=== PATIENT | male | born 1970 | race African-American/Black ===

== ENCOUNTER 2024-03-01 11:43 | Emergency (ER) | payer OTHER ==
--- OUTSIDE RECORDS SUMMARY | 2024-03-01 11:48 | XMS REPORT | Continuity of Care Document ---
Author Name Unknown Address [address] [place] [place] [address] [facility] thconnect Address [address] [place] [place] [address] Care Team Providers Care Registered Nurse First Assistant Name Role Phone VICK SAMANO Primary Care Physician Unavailab LIZZIE Stewart Attending Clinician Unav ailable KEYSHAWN AMAYA Attending Clinician Unava ilSITA Monroy Attending Clinician UnavailVICK Eason Attending Clinician Unavailable , [facility] Attending Clinician Unavailable Vick Samano NP Attending Clinician [phone] NIKKO PEDERSON Attending Clinician Unavailable NIKKO PEDERSON Attending Clinician Unavailable Nikko Pederson MD Attending Clinician [phone] Carlo Evans MD Attending Clinician + Doctor Unassigned, [place] Attending Clinician U navailable VIDYA ARMIJO Attending Clinician Unavailable LAURENT PRETTY Attending Clinician Unavaila RIGOBERTO Cary Attending Clinician Unavailable Yue Bee Attending Clinician [phone] Doctor Unassigned, [place] Attending Clinician U navailCARLO Nevraez Attending Clinician Unavailable YUE GARCÍA Attending Clinician Unavailable JORGE GALLARDO Attending Clinician Unavailable SHAUN WILLOUGHBY Attending Clinician Unavaila ble 2, [facility] Attending Clinician Unavailable JOS BLACKMAN Attending Clinician Latosha vailaBRUCE Pearce Attending Clinician Unavailable Bruce Koehler DO Attending Clinician [phone] Lorrie Martinez RN Attending Clinician Unavailable IVETH FONTAINE Attending Clinician Unavailable Iveth Fontaine MD Attending Clinician [phone] YUVAL SNYDER Attending Clinician Unavailable JACKSON PEREZ Attending Clinician Unavail able Yue Baires Attending Clinician [phone] Leni Banks MD Attending Clinician [phone] Jin Martinez MD Attending Clinician [phone] JIN MARTINEZ Attending Clinician Unavail able JIN MARTINEZ Attending Clinician Unavail able GE NICHOLSON Attending Clinician Unavailable Ge Nicholson MD Attending Clinician [phone] NIKKO PEDERSON Admitting Clinician Unavailable BRUCE KOEHLER Admitting Clinician Unavailable IVETH FONTAINE Admitting Clinician Unavailable Iveth Fontaine MD Admitting Clinician [phone] YUVAL SNYDER Admitting Clinician Unavailable Payers Payer Name Policy Type Policy Number Effective Date Expirati on Date Source [facility] [id number] 2022 00:00[facility]00 [facility] [id number] 2022 00:00:00 Problems Condition Name Condition Details Condition Category Status Onset Date Resolution Date Last Treatment Date Treating Clinician Comments Source Gastroesop hageal reflux disease without esophagiti s Gastroesop hageal reflux disease without esophagiti s Disease Active 2023-02 00:00: 00 [facility] Hypertrigl yceridemia Hypertrigl yceridemia Disease Active 2023-02 00:00: 00 [facility] Essential hypertensi on Essential hypertensi on Disease Active 2023-02 00:00: 00 [facility] History of stroke History of stroke Disease Active 2023-02 00:00: 00 [facility] Type 2 diabetes mellitus with other specified complicati on, with long-term current use of insulin Type 2 diabetes mellitus with other specified complicati on, with long-term current use of insulin Disease Active 2023-02 00:00: 00 [facility] Muscle twitching Muscle twitching Disease Active 2022-02 00:00: 00 [facility] Obesity (BMI 30-39.9) Obesity (BMI 30-39.9) Disease Active 2022-02 00:00: 00 [facility] ESRD (end stage renal disease) ESRD (end stage renal disease) Disease Active 06-16 00:00: 00 Overview: Formattin g of this note might be different from the original. Added automatic ally from request for surgery [id number] [facility] Allergies, Adverse Reactions, Alerts Allergy Name Allergy Type Status Severity Reaction(s) Onset Date Inactive Date Treating Clinician Comments Source NO KNOWN ALLERGIE S Drug Class Active [facility] Social History Social Habit Start Date Stop Date Quantity Comments Source [facility] Sexual [facility] History of tobacco use Passive smoker [facility] Cigarettes smoked current (pack per day) - Reported 2024-02-19 00:00:00 2024-02-19 00:00:00 [facility] Cigarette pack-years 2024-02-19 00:00:00 2024-02-19 00:00:00 [facility] Tobacco use and exposure 2024-02-19 00:00:00 2024-02-19 00:00:00 Smokeless tobacco non-user [facility] Alcoholic beverage intake 2024-02-19 00:00:00 2024-02-19 00:00:00 Lifetime non-drinker (finding) [facility] History of Social function 2024-02-18 00:00:00 2024-02-18 00:00:00 [facility] Tobacco Comment 2024-02-18 00:00:00 2024-02-18 00:00:00 Uses filtered cigars, half a pack a day smoked 22 years-10 cigarettes per day [facility] Alcohol intake 2023-05-03 00:00:00 2023-05-03 00:00:00 Lifetime non-drinker (finding) [facility] Exposure to SARS-CoV-2 (event) 2022-07-01 00:00:00 2022-07-11 15:40:00 Not sure [facility] Sex assigned at 1970 00:00:00 1970 00:00:00 [facility] Smoking Status Start Date Stop Date Source Tobacco smoking consumption unknown [facility] Smokes tobacco daily 2024-02-19 00:00:00 [facility] Medications Ordered Medication Name Filled Medication Name Start Date Stop Date Current Medication? Ordering Clinician Indication Dosage Frequency Signature (SIG) Comments Components Source pantoprazol e 40 mg EC tablet 2023-02 00:00: 00 Yes [id number] 40mg Take 1 tablet by mouth in the morning. [facility] tc 99m-sulfur colloid oral solution 1 millicurie 2023-02 15:00: 00 01-17 15:00 :00 No [id number] 1mCi 1 millicurie , Oral, ONCE, 1 dose, On Sun01/18/24 at 0900, Routine [facility] carvediloL (COREG) 12.5 mg tablet 08-02 11:36: 45 08-02 00:00 :00 No 12.5mg Take 1 tablet by mouth in the morning and 1 tablet in the evening. Take with meals. [facility] Insulin Glargine (LANTUS SOLOSTAR U-100 INSULIN) 100 unit/mL (3 mL) injection 08-02 11:14: 24 Yes 20U inject 20 Units under the skin at bedtime. [facility] furosemide (LASIX) 40 mg tablet 08-02 10:57: 23 Yes 40mg Take 1 tablet by mouth in the morning. [facility] losartan 50 mg tablet 08-02 10:57: 23 Yes 50mg Take 1 tablet by mouth in the morning and 1 tablet in the evening. [facility] insulin regular human 100 unit/mL injection 08-02 10:57: 23 Yes 4U inject 4 Units under the skin in the morning and 4 Units at noon and 4 Units in the evening. inject before meals. Sliding scale [facility] NIFEdipine ER 60 mg tablet 08-02 10:57: 23 Yes 60mg Take 1 tablet by mouth in the morning and 1 tablet in the evening. [facility] carvediloL (COREG) 25 mg tablet 08-02 00:00: 00 Yes [id number] 25mg Take 1 tablet by mouth in the morning and 1 tablet in the evening. Take with meals. [facility] atorvastati n (LIPITOR) 10 mg tablet 05-03 00:00: 00 Yes [id number] 10mg Take 1 tablet by mouth at bedtime. [facility] calcium acetate,ruben sphat bind, 667 mg capsule 05-02 15:20: 07 Yes 667mg Take 1 capsule by mouth in the morning and 1 capsule at noon and 1 capsule in the evening. Take with meals. [facility] Insulin Glargine (LANTUS SOLOSTAR U-100 INSULIN) 100 unit/mL (3 mL) injection 05-02 15:20: 07 Yes 15U inject 15 Units under the skin at bedtime. [facility] insulin regular human 100 unit/mL injection 05-02 15:20: 06 Yes 4U inject 4 Units under the skin in the morning and 4 Units at noon and 4 Units in the evening. inject before meals. Sliding scale [facility] losartan 50 mg tablet 05-02 15:18: 45 Yes 50mg Take 1 tablet by mouth in the morning and 1 tablet in the evening. [facility] carvediloL (COREG) 12.5 mg tablet 05-02 15:18: 09 Yes 12.5mg Take 1 tablet by mouth in the morning and 1 tablet in the evening. Take with meals. [facility] furosemide (LASIX) 40 mg tablet 05-02 15:18: 09 Yes 40mg Take 1 tablet by mouth in the morning. [facility] calcium carbonate (CALCIUM 500 ORAL) 05-02 15:17: 42 05-02 00:00 :00 No Take by mouth. [facility] NIFEdipine ER 60 mg tablet 05-02 15:17: 40 Yes 60mg Take 1 tablet by mouth in the morning and 1 tablet in the evening. [facility] D10W 10 % IV infusion 03-06 15:00: 00 Yes at 100 mL/hr, IV Infusion, CONTINUOUS , Starting on Sun03/06/23 at 0900, Until Discontinu ed, Routine [facility] losartan (COZAAR) tablet 50 mg 2022-02 15:00: 00 Yes 50mg 50 mg, Oral, BID, First dose on 01/27/23 at 0900, Until Discontinu ed, Routine [facility] atenoloL (TENORMIN) tablet 25 mg 2022-02 14:15: 00 Yes 25mg 25 mg, Oral, QHS, First dose on 01/27/23 at 0815, Until Discontinu ed, Routine [facility] apixaban 2.5 mg tablet 2022-02 13:25: 23 Yes 2.5mg Take 1 tablet by mouth in the morning and 1 tablet in the evening. [facility] calcium carbonate (CALCIUM 500 ORAL) 2022-02 13:25: 23 Yes Take by mouth. [facility] KCL (KLOR-CON M10) tablet 30 mEq 2022-02 12:45: 00 01-27 13:51 :00 No 30meq 30 mEq, Oral, ONCE, 1 dose, On 01/27/23 at 0645, Routine [facility] labetalol HCl (LABETALOL ORAL) 2022-02 12:12: 01-27 00:00 :00 No 60mg Take 60 mg by mouth in the morning. [facility] insulin lispro 100 unit/mL pen injector 2022-02 12:12: 01-27 00:00 :00 No inject under the skin 3 (three) times daily before meals. Sliding scale. Highest dose 10 units [facility] atenoloL 25 mg tablet 2022-02 00:00: 00 02-27 05:59 :00 No [id number] 25mg Take 1 tablet by mouth at bedtime for 30 days. [facility] losartan 50 mg tablet 2022-02 00:00: 00 02-27 05:59 :00 No [id number] 50mg Take 1 tablet by mouth in the morning and 1 tablet in the evening. Do all this for 30 days. [facility] insulin lispro 100 unit/mL pen injector 2022-02 00:00: 00 02-27 05:59 :00 No [id number] 10U inject 10 Units under the skin in the morning and 10 Units at noon and 10 Units in the evening. inject before meals. Do all this for 30 days. If you eat 1/2 meal, cut the dose to 5 units with the meal [facility] pantoprazol e (PROTONIX) EC tablet 40 mg 2022-02 15:00: 00 Yes 40mg 40 mg, Oral, DAILY, First dose on Sun01/26/23 at 0900, Until Discontinu ed, Routine [facility] insulin lispro (human) (HumaLOG U-100) injection 10 Units 2022-02 05:30: 00 01-26 04:52 :00 No 10U 10 Units, Subcutaneo us, ONCE, 1 dose, On Sun01/25/23 at 2330, Routine [facility] insulin glargine (LANTUS U-100) injection 5 Units 2022-02 05:30: 00 01-26 04:50 :00 No 5U 5 Units, Subcutaneo us, ONCE, 1 dose, On Sun01/25/23 at 2330, Routine [facility] Sliding Scale Insulin - Lispro (HumaLOG) 2022-02 03:00: 00 Yes Subcutaneo us, TID MEALS+HS, First dose on Sun01/25/23 at 2100, Until Discontinu ed, Routine [facility] apixaban (ELIQUIS) tablet 2.5 mg 2022-02 02:00: 00 Yes 2.5mg 2.5 mg, Oral, BID, First dose on Sun01/25/23 at 2000, Until Discontinu ed, Routine
Indicatio ns: Non-Valvul ar Atrial Fibrillati on [facility] NIFEdipine ER tablet 60 mg 2022-02 02:00: 00 Yes 60mg 60 mg, Oral, BID, First dose on Sun01/25/23 at 2000, Until Discontinu ed, Routine [facility] labetaloL (NORMODYNE) tablet 50 mg 2022-02 02:00: 00 01-27 14:06 :03 No 50mg 50 mg, Oral, Q12H, First dose on Sun01/25/23 at 2000, Until Discontinu ed [facility] insulin glargine (LANTUS U-100) injection 20 Units 2022-02 01:00: 00 Yes 20U 20 Units, Subcutaneo us, DAILY, First dose on Sun01/25/23 at 1900, Until Discontinu ed, Routine [facility] glucagon (GLUCAGEN DIAGNOSTIC KIT) injection 1 mg 2022-02 00:47: 13 Yes 1mg 1 mg, Intramuscu lar, PRN, Starting on Sun01/25/23 at 1847, Until Discontinu ed, JOB, Blood Glucose < or = 70 mg/dL and patient is NPO, unable to swallow or has mental changes. [facility] dextrose 50 % in water (D50W) injection 25 mL 2022-02 00:47: 13 Yes 25mL 25 mL, Slow IV Push, PRN, Starting on Sun01/25/23 at 1847, Until Discontinu ed, JOB, Blood Glucose < or = 70 mg/dL and patient is NPO, unable to swallow or has mental status changes. [facility] insulin regular human (HUMULIN R) injection 5 Units 2022-02 23:30: 00 01-25 22:45 :00 No 5U 5 Units, Subcutaneo us, ONCE, 1 dose, On Sun01/25/23 at 1730, Routine
Indicatio n for insulin: Hyperglyce cheryl [facility] KCL (KLOR-CON M20) tablet 20 mEq 2022-02 23:30: 00 01-25 22:44 :00 No 20meq 20 mEq, Oral, ONCE, 1 dose, On Sun01/25/23 at 1730, Routine [facility] insulin regular human (HUMULIN R) injection 7 Units 2022-02 21:00: 00 01-25 20:15 :00 No 7U 7 Units, Subcutaneo us, ONCE, 1 dose, On Sun01/25/23 at 1500, Routine
Indicatio n for insulin: Hyperglyce cheryl [facility] NaCl 0.9% (NS) bolus infusion 1,000 mL 2022-02 19:45: 00 01-25 21:09 :00 No 1000mL at 999 mL/hr, 1,000 mL, IV Piggyback, ONCE, 1 dose, On Sun01/25/23 at 1345, STAT [facility] insulin regular human (HUMULIN R) injection 10 Units 2022-02 19:30: 00 01-25 19:10 :00 No 10U 10 Units, Subcutaneo us, ONCE, 1 dose, On Sun01/25/23 at 1330, Routine
Indicatio n for insulin: Hyperglyce [facility] insulin lispro 100 unit/mL pen injector 08-31 15:58: 27 Yes inject under the skin 3 (three) times daily before meals. Sliding scale. Highest dose 10 units [facility] olmesartan 40 mg tablet 08-31 15:58: 27 08-31 00:00 :00 No 40mg Take 1 tablet by mouth in the morning. [facility] atenoloL 25 mg tablet 08-31 15:58: 15 08-31 00:00 :00 No 25mg Take 1 tablet by mouth in the morning. [facility] pantoprazol e 40 mg EC tablet 08-31 00:00: 00 02-17 00:00 :00 No [id number] 40mg Take 1 tablet by mouth in the morning. [facility] apixaban 2.5 mg tablet 07-27 16:10: 01 Yes 2.5mg Take 1 tablet by mouth in the morning and 1 tablet in the evening. [facility] labetalol HCl (LABETALOL ORAL) 07-27 16:10: 01 Yes 60mg Take 60 mg by mouth in the morning. [facility] insulin lispro 100 unit/mL pen injector 07-27 16:10: 01 Yes inject under the skin 3 (three) times daily before meals. [facility] atenoloL 25 mg tablet 07-27 16:10: 01 Yes 25mg Take 1 tablet by mouth in the morning. [facility] olmesartan 40 mg tablet 07-27 16:10: 01 Yes 40mg Take 1 tablet by mouth in the morning. [facility] HYDROcodone -acetaminop hen (NORCO) 10-325 mg tablet 1 tablet 07-14 15:09: 40 Yes 1{tbl} 1 tablet, Oral, PRN, 1 dose, Starting on Sun07/14/22 at 1009, Until Discontinu ed, Routine, Pain (scale 7-10), DSU Recovery [facility] HYDROcodone -acetaminop hen (NORCO 5) 5-325 mg tablet 1 tablet 07-14 15:09: 40 Yes 1{tbl} 1 tablet, Oral, PRN, 1 dose, Starting on Sun07/14/22 at 1009, Until Discontinu ed, Routine, Pain (scale 4-6), DSU Recovery [facility] acetaminoph en (TYLENOL) tablet 650 mg 07-14 15:09: 40 Yes 650mg 650 mg, Oral, PRN, 1 dose, Starting on Sun07/14/22 at 1009, Until Discontinu ed, Routine, Pain (scale 1-3), DSU Recovery [facility] NaCl 0.9% (NS) IV infusion 07-14 13:16: 00 07-14 14:48 :24 No CONTINUOUS PRN, Starting on Sun07/14/22 at 0816, Until Sun07/14/22 at 0948, Routine, Intra-op [facility] heparin 25,000 Units/250 mL (Premixed Bag) in 0.45 % NS 07-14 13:15: 00 07-14 14:48 :24 No CONTINUOUS PRN, Starting on Sun07/14/22 at 0815, Until Sun07/14/22 at 0948, Routine, Intra-op [facility] NaCl 0.9% (NS) IV infusion 1,000 mL 07-14 11:45: 00 Yes 1000mL at 42 mL/hr, IV Infusion, CONTINUOUS , Starting on Sun07/14/22 at 0645, Until Discontinu ed, Routine, DSU Pre-op [facility] apixaban 2.5 mg tablet 07-14 10:53: 21 Yes 2.5mg Take 1 tablet by mouth in the morning and 1 tablet in the evening. [facility] labetalol HCl (LABETALOL ORAL) 07-14 10:53: 21 Yes 60mg Take 60 mg by mouth in the morning. [facility] insulin lispro 100 unit/mL pen injector 07-14 10:53: 21 Yes inject under the skin 3 (three) times daily before meals. [facility] atenoloL 25 mg tablet 07-14 10:53: 21 Yes 25mg Take 1 tablet by mouth in the morning. [facility] olmesartan 40 mg tablet 07-14 10:53: 21 Yes 40mg Take 1 tablet by mouth in the morning. [facility] traMADoL 50 mg tablet 07-14 00:00: 00 07-22 04:59 :00 No [id number] 50mg Take 1 tablet by mouth every 6 (six) hours as needed for Pain (scale 4-6) or Pain (scale 7-10) for up to 7 days. Indication s: acute pain [facility] atenoloL 25 mg tablet 07-11 15:55: 12 Yes 25mg Take 1 tablet by mouth in the morning. [facility] atenoloL 25 mg tablet 07-05 14:24: 19 Yes 25mg Take 1 tablet by mouth in the morning. [facility] olmesartan 40 mg tablet 07-05 14:24: 19 Yes 40mg Take 1 tablet by mouth in the morning. [facility] apixaban 2.5 mg tablet 07-05 14:04: 50 Yes 2.5mg Take 1 tablet by mouth in the morning and 1 tablet in the evening. [facility] labetalol HCl (LABETALOL ORAL) 07-05 14:04: 50 Yes 60mg Take 60 mg by mouth in the morning. [facility] insulin lispro 100 unit/mL pen injector 07-05 14:04: 50 Yes inject under the skin 3 (three) times daily before meals. [facility] insulin lispro (HUMALOG KWIKPEN INSULIN) 100 unit/mL pen injector 05-30 14:51: 27 Yes inject under the skin 3 (three) times daily before meals. [facility] apixaban 5 mg tablet 05-30 14:51: 27 Yes 5mg Take 1 tablet by mouth in the morning. [facility] labetalol HCl (LABETALOL ORAL) 05-30 14:51: 27 Yes 60mg Take 60 mg by mouth in the morning. [facility] calcium carbonate (CALCIUM 500 ORAL) 05-30 14:47: 01 Yes Take by mouth. [facility] NIFEdipine ER 60 mg tablet 05-25 00:00: 00 Yes 60mg Take 1 tablet by mouth in the morning. [facility] NIFEdipine ER 90 mg tablet 05-25 00:00: 00 05-02 00:00 :00 No 90mg Take 1 tablet by mouth in the morning and 1 tablet in the evening. [facility] hydralAZINE (APRESOLINE ) injection 20 mg 05-21 18:15: 00 05-21 17:21 :00 No 20mg 20 mg, Slow IV Push, ONCE, 1 dose, On 05/21/22 at 1315, STAT [facility] hydralAZINE (APRESOLINE ) injection 20 mg 05-21 16:30: 00 05-21 15:49 :00 No 20mg 20 mg, Slow IV Push, ONCE, 1 dose, On Sun05/21/22 at 1130, STAT [facility] NaCl 0.9% (NS) bolus infusion 1,000 mL 05-21 16:30: 00 05-21 17:35 :00 No 1000mL at 999 mL/hr, 1,000 mL, IV Piggyback, ONCE, 1 dose, On Sun05/21/22 at 1130, STAT [facility] dextrose 10% (D10W) bolus infusion 250 mL 05-21 16:14: 43 Yes 250mL 250 mL, IV Infusion, PRN - SEE INSTRUCTIO NS, Administer over 60 Minutes, Hypoglycem ia, Starting on Sun05/21/22 at 1114
De xtrose 10% 250 mL bag contains:& nbsp;10 gm = 100 mL 20 gm = 200 mL 25 gm = 250 mL (whole bag) The maximum rate at which dextrose can be infused without producing glycosuria is 0.5 g/kg/hour. &nbs p;BUD: If wrapper is open bag is good for 30 days at room temperatur e. <b r> [facility] dextrose 50 % in water (D50W) injection 50 mL 05-21 15:45: 00 05-21 15:41 :00 No 50mL 50 mL, Intravenou s, ONCE, 1 dose, On Sun05/21/22 at 1045, STAT [facility] hydrALAZINE 50 mg tablet 05-21 00:00: 00 08-31 00:00 :00 No [id number] 50mg Take 1 tablet by mouth in the morning and 1 tablet in the evening. [facility] Immunizations Ordered Immunization Name Filled Immunization Name Date Status Comments Source Influenza Virus Vaccine 00:00:00 Completed Vital Signs Vital Name Observation Time Observation Value Comments S ource Systolic blood pressure 2024-02-18 21:31:00 162 mm[Hg] [facility] Diastolic blood pressure 2024-02-18 21:31:00 90 mm[Hg] [facility] Heart rate 2024-02-18 20:13:00 94 /min [facility] Oxygen saturation in Arterial blood by Pulse oximetry 2024-02-18 20:13:00 98 /min [facility] Body temperature 2024-02-18 20:10:00 36.56 Nisha [facility] Body height 2024-02-18 20:10:00 170.2 cm [facility] Body weight 2024-02-18 20:10:00 95.255 kg [facility] BMI 2024-02-18 20:10:00 32.89 kg/m2 [facility] Systolic blood pressure 2024-02-18 21:30:00 162 mm[Hg] [facility] Diastolic blood pressure 2024-02-18 21:30:00 90 mm[Hg] [facility] Heart rate 2024-02-18 20:12:00 95 /min [facility] Oxygen saturation in Arterial blood by Pulse oximetry 2024-02-18 20:12:00 98 /min [facility] Body temperature 2024-02-18 20:11:00 36.56 Nisha [facility] Body height 2024-02-18 20:11:00 170.2 cm [facility] Body weight 2024-02-18 20:11:00 95.301 kg [facility] BMI 2024-02-18 20:11:00 32.91 kg/m2 [facility] Systolic blood pressure 2023-08-03 15:58:00 209 mm[Hg] [facility] Diastolic blood pressure 2023-08-03 15:58:00 103 mm[Hg] [facility] Heart rate 2023-08-03 15:57:00 91 /min [facility] Body temperature 2023-08-03 15:57:00 36.17 Nisha [facility] Respiratory rate 2023-08-03 15:57:00 8 /min [facility] Body height 2023-08-03 15:57:00 170.2 cm [facility] Body weight 2023-08-03 15:57:00 90.719 kg [facility] BMI 2023-08-03 15:57:00 31.32 kg/m2 [facility] Oxygen saturation in Arterial blood by Pulse oximetry 2023-08-03 15:57:00 98 /min [facility] Systolic blood pressure 2023-05-03 21:42:00 136 mm[Hg] per dialysis nurse [facility] Diastolic blood pressure 2023-05-03 21:42:00 87 mm[Hg] per dialysis nurse [facility] Heart rate 2023-05-03 21:05:00 89 /min [facility] Body temperature 2023-05-03 21:05:00 36.28 Nisha [facility] Respiratory rate 2023-05-03 21:05:00 18 /min [facility] Body height 2023-05-03 21:05:00 175.3 cm [facility] Body weight 2023-05-03 21:05:00 87.68 kg [facility] [facility] BMI 2023-05-03 21:05:00 28.55 kg/m2 [facility] Oxygen saturation in Arterial blood by Pulse oximetry 2023-05-03 21:05:00 98 /min [facility] Systolic blood pressure 2023-03-06 16:26:00 182 mm[Hg] [facility] Diastolic blood pressure 2023-03-06 16:26:00 96 mm[Hg] [facility] Heart rate 2023-03-06 16:26:00 76 /min [facility] Body temperature 2023-03-06 16:26:00 36.5 Nisha [facility] Respiratory rate 2023-03-06 16:26:00 16 /min [facility] Oxygen saturation in Arterial blood by Pulse oximetry 2023-03-06 16:26:00 100 /min [facility] Body height 2023-03-06 13:10:00 180.3 cm [facility] Body weight 2023-03-06 13:10:00 86.183 kg [facility] BMI 2023-03-06 13:10:00 26.50 kg/m2 [facility] Systolic blood pressure 2023-02-01 20:55:00 152 mm[Hg] [facility] Diastolic blood pressure 2023-02-01 20:55:00 84 mm[Hg] [facility] Heart rate 2023-02-01 20:55:00 89 /min [facility] Oxygen saturation in Arterial blood by Pulse oximetry 2023-02-01 20:55:00 98 /min [facility] Body temperature 2023-02-01 20:53:00 36.83 Nisha [facility] Respiratory rate 2023-02-01 20:53:00 15 /min [facility] Body weight 2023-02-01 20:53:00 89.404 kg [facility] BMI 2023-02-01 20:53:00 30.87 kg/m2 [facility] Systolic blood pressure 2023-01-27 17:26:00 176 mm[Hg] [facility] Diastolic blood pressure 2023-01-27 17:26:00 102 mm[Hg] [facility] Heart rate 2023-01-27 17:26:00 82 /min [facility] Body temperature 2023-01-27 17:26:00 36.5 Nisha [facility] Respiratory rate 2023-01-27 17:26:00 18 /min [facility] Body weight 2023-01-27 17:26:00 86.3 kg [facility] BMI 2023-01-27 17:26:00 29.80 kg/m2 [facility] Oxygen saturation in Arterial blood by Pulse oximetry 2023-01-27 10:00:00 93 /min [facility] Body height 2023-01-26 00:36:00 170.2 cm [facility] Systolic blood pressure 2022-08-31 20:55:00 151 mm[Hg] [facility] Diastolic blood pressure 2022-08-31 20:55:00 85 mm[Hg] [facility] Heart rate 2022-08-31 20:55:00 76 /min [facility] Body temperature 2022-08-31 20:54:00 36.67 Nisha [facility] Respiratory rate 2022-08-31 20:54:00 18 /min [facility] Body height 2022-08-31 20:54:00 170.2 cm [facility] Body weight 2022-08-31 20:54:00 89.177 kg [facility] BMI 2022-08-31 20:54:00 30.79 kg/m2 [facility] Respiratory rate 2022-07-14 15:17:00 11 /min [facility] Oxygen saturation in Arterial blood by Pulse oximetry 2022-07-14 15:17:00 100 /min [facility] Systolic blood pressure 2022-07-14 15:12:00 176 mm[Hg] [facility] Diastolic blood pressure 2022-07-14 15:12:00 94 mm[Hg] [facility] Body temperature 2022-07-14 14:53:00 36.83 Nisha [facility] Heart rate 2022-07-14 14:52:00 82 /min [facility] Body height 2022-07-05 19:00:00 170.2 cm [facility] Body weight 2022-07-05 19:00:00 86.183 kg [facility] BMI 2022-07-05 19:00:00 29.76 kg/m2 [facility] Systolic blood pressure 2022-07-14 14:53:00 178 mm[Hg] [facility] Diastolic blood pressure 2022-07-14 14:53:00 94 mm[Hg] [facility] Body temperature 2022-07-14 14:53:00 36.83 Nisha [facility] Respiratory rate 2022-07-14 14:53:00 13 /min [facility] Oxygen saturation in Arterial blood by Pulse oximetry 2022-07-14 14:53:00 100 /min [facility] Heart rate 2022-07-14 14:52:00 82 /min [facility] Body height 2022-07-05 19:00:00 170.2 cm [facility] Body weight 2022-07-05 19:00:00 86.183 kg [facility] BMI 2022-07-05 19:00:00 29.76 kg/m2 [facility] Systolic blood pressure 2022-07-11 20:53:00 178 mm[Hg] [facility] Diastolic blood pressure 2022-07-11 20:53:00 99 mm[Hg] [facility] Heart rate 2022-07-11 20:52:00 93 /min [facility] Respiratory rate 2022-07-11 20:52:00 20 /min [facility] Body height 2022-07-11 20:52:00 170.2 cm [facility] Body weight 2022-07-11 20:52:00 91.491 kg [facility] BMI 2022-07-11 20:52:00 31.59 kg/m2 [facility] Oxygen saturation in Arterial blood by Pulse oximetry 2022-07-11 20:52:00 99 /min [facility] Systolic blood pressure 2022-05-30 19:44:00 142 mm[Hg] [facility] Diastolic blood pressure 2022-05-30 19:44:00 83 mm[Hg] [facility] Heart rate 2022-05-30 19:43:00 78 /min [facility] Body temperature 2022-05-30 19:43:00 36.22 Nisha [facility] Respiratory rate 2022-05-30 19:43:00 18 /min [facility] Body height 2022-05-30 19:43:00 170.2 cm [facility] Body weight 2022-05-30 19:43:00 92.67 kg [facility] BMI 2022-05-30 19:43:00 32.00 kg/m2 [facility] Oxygen saturation in Arterial blood by Pulse oximetry 2022-05-30 19:43:00 98 /min [facility] Systolic blood pressure 2022-05-21 17:30:00 182 mm[Hg] [facility] Diastolic blood pressure 2022-05-21 17:30:00 94 mm[Hg] [facility] Body temperature 2022-05-21 17:30:00 36.67 Nisha [facility] Respiratory rate 2022-05-21 17:30:00 17 /min [facility] Oxygen saturation in Arterial blood by Pulse oximetry 2022-05-21 17:30:00 99 /min [facility] Heart rate 2022-05-21 17:00:00 73 /min [facility] Body weight 2022-05-21 15:35:00 98.431 kg [facility] Procedures Procedure Date / Time Performed Performing Clinician Source FREE T4 2024-02-18 21:43:00 [facility] HORMONE 2024-02-18 21:43:00 Vick Samano [facility] COMP. METABOLIC PANEL (88721) 2024-02-18 21:43:00 Vick Samano [facility] LIPID PANEL (91061)(TOTAL CHOLESTEROL, TRIGLYCERIDES, HDL) 2024-02-18 21:43:00 Vick Samano [facility] NM GASTRIC EMPTYING 2024-01-18 19:00:00 Nikko Pederson [facility] PROSTATIC SPECIFIC ANTIGEN 2023-05-03 21:55:00 Yue García [facility] POCT GLUCOSE (AUTOMATED) 2023-03-06 16:23:00 Jae Koehler [facility] CT HEAD WO CONTRAST 2023-03-06 16:06:59 Willow Koehler [facility] POCT GLUCOSE (AUTOMATED) 2023-03-06 15:46:00 Jae Koehler [facility] POCT GLUCOSE (AUTOMATED) 2023-03-06 15:03:00 Jae Koehler [facility] POCT GLUCOSE (AUTOMATED) 2023-03-06 14:23:00 Jae Koehler [facility] POCT GLUCOSE (AUTOMATED) 2023-03-06 14:09:00 Jae Koehler [facility] POCT GLUCOSE (AUTOMATED) 2023-03-06 13:57:00 Jae Koehler [facility] POCT GLUCOSE (AUTOMATED) 2023-03-06 13:44:00 Jae Koehler sterlingluis [facility] POCT GLUCOSE (AUTOMATED) 2023-03-06 13:38:00 Jae Koehler [facility] COMP. METABOLIC PANEL (54490) 2023-03-06 13:19:00 Bruce Koehler [facility] CBC WITH DIFF 2023-03-06 13:19:00 Bruce Koehler [facility] ASSIGNMENT OF BENEFITS 2023-03-06 13:11:06 Docto r Unassigned, [place] [facility] CONSENT/REFUSAL FOR DIAGNOSIS AND TREATMENT 2023-03-06 13:09:09 Doctor Unassigned, [place] [facility] POCT GLUCOSE (AUTOMATED) 2023-03-06 13:04:00 Jae Koehler [facility] POCT GLUCOSE (AUTOMATED) 2023-01-27 18:19:00 Guanakito Fontaine [facility] POCT GLUCOSE (AUTOMATED) 2023-01-27 13:43:00 Guanakito Fontaine [facility] PHOSPHORUS 2023-01-27 10:41:00 Brian Hilton [facility] MAGNESIUM 2023-01-27 10:41:00 Brian Hilton [facility] BASIC METABOLIC PANEL (NA, K, CL, CO2, GLUCOSE, BUN, CREATININE, CA) 2023-01-27 10:41:00 Brian Hilton [facility] CBC WITH DIFF 2023-01-27 10:41:00 Brian Hilton [facility] POCT GLUCOSE (AUTOMATED) 2023-01-27 01:45:00 Guanakito Fontaine [facility] CT HEAD WO CONTRAST 2023-01-26 22:59:13 Roseann Sandra [facility] POCT GLUCOSE (AUTOMATED) 2023-01-26 22:08:00 Guanakito Fontaine [facility] POCT GLUCOSE (AUTOMATED) 2023-01-26 17:17:00 Guanakito Fontaine [facility] POCT GLUCOSE (AUTOMATED) 2023-01-26 13:56:00 Guanakito Fontaine [facility] PHOSPHORUS 2023-01-26 10:36:00 Iveth Fontaine [facility] MAGNESIUM 2023-01-26 10:36[facility] LIPID PANEL (42546)(TOTAL CHOLESTEROL, TRIGLYCERIDES, HDL) 2023-01-26 10:36:00 Iveth Fontaine [facility] CBC WITH DIFF 2023-01-26 10:36[facility]OGLOBIN (A1C) 2023-01-26 10:36:00 Iveth Fontaine [facility] BASIC METABOLIC PANEL (NA, K, CL, CO2, GLUCOSE, BUN, CREATININE, CA) 2023-01-26 06:06:00 Roseann Sandra [facility] POCT GLUCOSE (AUTOMATED) 2023-01-26 04:04:00 Guanakito Fontaine [facility] MRSA / MSSA SCREEN BY RAMESH WHITE 2023-01-26 01:52:00 Iveth Fontaine [facility] POCT GLUCOSE (AUTOMATED) 2023-01-26 01:30:00 Guanakito Fontaine [facility] POCT GLUCOSE (AUTOMATED) 2023-01-26 00:18:00 Guanakito Fontaine samia [facility] POCT GLUCOSE (AUTOMATED) 2023-01-25 23:21:00 Jae Koehler [facility] POCT GLUCOSE (AUTOMATED) 2023-01-25 22:37:00 Jae Koehler [facility] BASIC METABOLIC PANEL (NA, K, CL, CO2, GLUCOSE, BUN, CREATININE, CA) 2023-01-25 21:10:00 [facility] POCT GLUCOSE(AGE >30DAYS) 2023-01-25 21:10:00 [facility] POCT GLUCOSE (AUTOMATED) 2023-01-25 21:01:00 Jae Koehler [facility] POCT GLUCOSE(AGE >30DAYS) 2023-01-25 20:06:00 [facility] POCT GLUCOSE (AUTOMATED) 2023-01-25 19:56:00 Jae Koehler [facility] AC PANEL 21 + LACTIC ACID 2023-01-25 19:08:00 [facility] POCT GLUCOSE (AUTOMATED) 2023-01-25 18:40:00 Jae Koehler [facility] BASIC METABOLIC PANEL (NA, K, CL, CO2, GLUCOSE, BUN, CREATININE, CA) 2023-01-25 17:58:00 Bruce Koehler [facility] ASSIGNMENT OF BENEFITS 2023-01-25 17:55:17 Docto r Unassigned, [place] [facility] CONSENT/REFUSAL FOR DIAGNOSIS AND TREATMENT 2023-01-25 16:27:37 Doctor Unassigned, [place] [facility] URIC ACID 2022-09-05 20:18:00 [place] [facility] PROSTATIC SPECIFIC ANTIGEN 2022-09-05 20:18:00 García [facility] FREE T4 2022-09-05 20:18:00 [place] [facility] THYROID STIMULATING HORMONE 2022-09-05 20:18:00 [place] [facility] COMP. METABOLIC PANEL (32486) 2022-09-05 20:18:00 [place] [facility] LIPID PANEL (27010)(TOTAL CHOLESTEROL, TRIGLYCERIDES, HDL) 2022-09-05 20:18:00 Juan [facility] CBC WITH DIFF 2022-09-05 20:18:00 [place] [facility] GLYCOSYLATED HEMOGLOBIN (A1C) 2022-09-05 20:18:00 [place] [facility] URINALYSIS 2022-09-05 20:18:00 [place] [facility] HCV ANTIBODY 2022-09-05 20:18:00 [place] [facility] ARTERIOVENOUS FISTULA CREATION 2022-07-14 12:10:00 Yuval Snyder [facility] POTASSIUM SERUM 2022-07-14 12:03:00 [facility] POTASSIUM SERUM 2022-07-14 12:03:00 [facility] PO[facility] GLUCOSE (AUTOMATED) 2022-07-14 12:01:00 Cherie Snyder [facility] POCT GLUCOSE (AUTOMATED) 2022-07-14 12:01:00 Cherie Snyder [facility] ASSIGNMENT OF BENEFITS 2022-05-30 19:34:55 Docto r Unassigned, [place] [facility] COMP. METABOLIC PANEL (63107) 2022-05-21 16:45:00 Ge Nicholson [facility] POCT GLUCOSE (AUTOMATED) 2022-05-21 16:43:00 Ge Nicholson [facility] POCT GLUCOSE (AUTOMATED) 2022-05-21 16:13:00 Ge Nicholson [facility] MAGNESIUM 2022-05-21 15:45:00 Ge Nicholson [facility] CBC WITH DIFF 2022-05-21 15:45:00 Ge Nicholson [facility] POCT GLUCOSE (AUTOMATED) 2022-05-21 15:37:00 Doc tor Unassigned, [place] [facility] NOTICE OF PRIVACY PRACTICES 2022-05-21 15:34:02 Doctor Unassigned, [place] [facility] CONSENT/REFUSAL FOR DIAGNOSIS AND TREATMENT 2022-05-21 15:31:54 Doctor Unassigned, [place] [facility] Encounters Start Date/Time End Date/Time Encounter Type Admission Type Attending Clinicians Care Facility Care Department Encounter ID Source 2024-03-05 15:30:00 2024-03-05 15:30:00 Outpatient SITA DEL CASTILLO [facility] [id number] [facility] 2024-03-03 13:00:00 2024-03-03 13:00:00 Outpatient VICK CORTES [facility] [id number] [facility] 2024-02-18 15:45:00 2024-02-18 15:45:00 Barn Boss Visit 2, Adc Lab Vick Samano 2, [facility] 1.2.840.114 350.1.13.10 4.2.7.2.686 [id number] [facility] 2024-02-18 13:00:00 2024-02-18 15:36:11 Outpatient VICK CORTES [facility] [id number] [facility] 2024-02-18 13:00:00 2024-02-18 15:36:11 Office Visit Vick Samano [facility] 1.2.840.114 350.1.13.10 4.2.7.2.686 [id number] [facility] 2024-02-18 14:00:00 2024-02-18 15:32:12 Office Visit Vick Samano [facility] 1.2.840.114 350.1.13.10 4.2.7.2.686 [id number] [facility] 2024-01-18 08:07:45 2024-01-18 23:59:00 Outpatient R NIKKO PEDERSON NAVEED [facility] [id number] [facility] 2024-01-18 08:00:00 2024-01-18 23:59:00 Hospital Encounter Nikko Pederson [facility] 1.2.840.114 350.1.13.10 4.2.7.2.686 [id number] [facility] 2024-01-02 00:00:00 2024-01-08 12:49:37 Telephone Carlo Evans [facility] 1.2.840.114 350.1.13.10 4.2.7.2.686 [id number] [facility] 2023-09-18 00:00:00 2023-10-20 18:20:32 Patient Secure Msg Doctor Unassigned, [place] Doctor Unassigned, [place] [facility] 1.2.840.114 350.1.13.10 4.2.7.2.686 [id number] [facility] 2023-09-21 10:30:00 2023-09-21 10:30:00 Outpatient R LAURENT PRETTY [facility] [id number] [facility] 2023-09-18 16:30:00 2023-09-18 16:30:00 Outpatient Connor RIGOBERTO FRANCOIS [facility] [id number] [facility] 2023-09-18 00:00:00 2023-09-18 15:52:26 Letter (Out) Yue García [facility] 1..840.114 350.1.13.10 4.2.7.2.686 [id number] [facility] 2023-08-10 00:00:00 2023-09-15 18:21:28 Patient Secure Msg Doctor Unassigned, [place] [facility] 1.840.114 350.1.13.10 4.2.7.2.686 [id number] [facility] 2023-08-28 09:30:00 2023-08-28 09:30:00 Outpatient Connor KURT FRANCOISALVINOCOLLIN [facility] [id number] [facility] 2023-08-10 10:40:00 2023-08-10 10:40:00 Outpatient R CARLO EVANS [facility] [id number] [facility] 2023-08-03 11:00:00 2023-08-03 11:39:50 Outpatient R YUE GARCÍA [facility] [id number] [facility] 2023-08-03 11:00:00 2023-08-03 11:39:50 Office Visit Yue García [facility] 1..840.114 350.1.13.10 4.2.7.2.686 [id number] [facility] 2023-05-22 09:00:00 2023-05-22 09:00:00 Outpatient R JORGE GALLARDO [facility] [id number] [facility] 2023-05-04 00:00:00 2023-05-04 00:00:00 Telephone Yue García [facility] 1..840.114 350.1.13.10 4.2.7.2.686 [id number] [facility] 2023-05-03 16:00:00 2023-05-03 16:15:00 [place] Boss Visit 2, Adc Lab Yue García [facility] 1.2.840.114 350.1.13.10 4.2.7.2.686 [id number] [facility] 2023-05-03 16:00:00 2023-05-03 16:06:23 [facility] [id number] 2023-05-03 15:00:00 2023-05-03 15:33:41 Office Visit Yue García [facility] 1.2.840.114 350.1.13.10 4.2.7.2.686 [id number] [facility] 2023-03-26 00:00:00 2023-03-26 00:00:00 Letter (Out) [facility] 1.2.840.114 350.1.13.10 4.2.7.2.686 [id number] [facility] 2023-03-08 00:00:00 2023-03-08 00:00:00 Telephone Yue García [facility] 1.2.840.114 350.1.13.10 4.2.7.2.686 [id number] [facility] 2023-03-06 07:12:00 2023-03-06 10:48:00 Emergency X [facility] [id number] [facility] 2023-03-06 07:12:00 2023-03-06 10:48:00 Emergency Bruce Koehler [facility] 1.2.840.114 350.1.13.10 4.2.7.2.686 [id number] [facility] 2023-02-02 00:00:00 2023-02-02 00:00:00 Telephone Yue García [facility] 1.2.840.114 350.1.13.10 4.2.7.2.686 [id number] [facility] 2023-02-01 15:00:00 2023-02-01 15:13:39 Outpatient R HENRY GARCÍASSICA [facility] [id number] [facility] 2023-02-01 15:00:00 2023-02-01 15:13:39 Office Visit Yue García [facility] 1.2.840.114 350.1.13.10 4.2.7.2.686 [id number] [facility] 2023-01-29 00:00:00 2023-01-29 00:00:00 Transition of Care Martinez Lorrie SUWood HEATHER BENDER 1..840.114 350.1.13.10 4.2.7.2.686 [id number] [facility] 2023-01-25 10:38:00 2023-01-27 13:00:00 Outpatient X IVETH FONTAINE [facility] [id number] [facility] 2023-01-25 10:38:00 2023-01-27 13:00:00 Hospital Encounter Bruce Koehler Jelani [facility] 1..840.114 350.1.13.10 4.2.7.2.686 [id number] [facility] 2022-12-12 14:30:00 2022-12-12 14:30:00 Outpatient R JOS BLACKMAN [facility] [id number] [facility] 2022-11-02 15:30:00 2022-11-02 15:30:00 Outpatient R YUE GARCÍA [facility] [id number] [facility] 2022-10-13 00:00:00 2022-10-13 00:00:00 Telephone Yue García [facility] 1.2.840.114 350.1.13.10 4.2.7.2.686 [id number] [facility] 2022-09-28 16:00:00 2022-09-28 16:00:00 Outpatient R YUVAL SNYDER [facility] [id number] [facility] 2022-09-26 16:00:00 2022-09-26 16:00:00 Outpatient R VIDYA ARMIJO [facility] [id number] [facility] 2022-09-20 13:45:00 2022-09-20 13:45:00 Outpatient R JACKSON PEREZ [facility] [id number] [facility] 2022-09-14 13:30:00 2022-09-14 13:30:00 Outpatient R YUVAL SNYDER [facility] [id number] [facility] 2022-09-08 00:00:00 2022-09-08 00:00:00 Telephone Yue García [facility] 1.2.840.114 350.1.13.10 4.2.7.2.686 [id number] [facility] 2022-09-05 15:30:00 2022-09-05 15:30:10 [place] Boss Visit 2, Adc Lab Yue García [facility] 1.2.840.114 350.1.13.10 4.2.7.2.686 [id number] [facility] 2022-09-05 15:30:00 2022-09-05 15:30:00 Outpatient R YUE GARCÍA [facility] [id number] [facility] 2022-09-04 00:00:00 2022-09-04 00:00:00 Letter (Out) Leni Banks [facility] 1.284.114 350.1.13.10 4.2.7.2.686 [id number] [facility] 2022-08-31 16:00:00 2022-08-31 16:10:17 Office [facility] 1..840.114 [id number] [id number] [id number] [facility] 2022-08-31 16:00:00 2022-08-31 16:10:17 Outpatient YUE HILL [facility] [id number] [facility] 2022-08-23 00:00:00 2022-08-23 00:00:00 Telephone Leni Banks [facility] 1.840.114 [id number] [facility] [id number] [facility] 2022-07-27 16:30:00 2022-07-27 16:21:03 Outpatient YUVAL [facility] [id number] [facility] 2022-07-17 00:00:00 2022-07-17 00:00:00 Telephone Jin Martinez [facility] 1..840.114 350.1.13.10 4.2.7.2.686 [id number] [facility] 2022-07-14 06:38:00 2022-07-14 10:32:00 Outpatient YUVAL [facility]ER [facility] [id number] [facility] 2022-07-14 06:38:00 2022-07-14 10:32:00 Hospital Encounter Yuval Snyder [facility] 1.2.840.114 350.1.13.10 4.2.7.2.686 [id number] [facility] 2022-07-14 07:10:00 2022-07-14 09:53:00 Surgery Yuval Snyder [facility] 1.2.840.114 350.1.13.10 4.2.7.2.686 [id number] [facility] 2022-07-14 00:00:00 2022-07-14 00:00:00 Telephone Henry Garcíassica [facility] N[facility] 1.2.840.114 350.1.13.10 4.2.7.2.686 [id number] [facility] 2022-07-12 00:00:00 2022-07-12 00:00:00 Telephone Yue García [facility] BU[facility] 1.2840.114 350.1.13.10 4.2.7.2.686 [id number] [facility] 2022-07-11 16:00:00 2022-07-11 16:43:20 Outpatient R JIN MARTINEZ [facility] [id number] [facility] 2022-07-11 16:00:00 2022-07-11 16:43:20 [facility] 1.2840.114 350.1.13.10 4.2.7.2.686 [id number] [facility] 2022-07-05 00:00:00 2022-07-05 00:00:00 Telephone Yue García [facility] 1.2.840.114 350.1.13.10 4.2.7.2.686 [id number] [facility] 2022-06-27 15:41:52 2022-06-27 15:41:52 Outpatient [facility] [id number] Laurent Donnelly 2022-06-27 15:00:00 2022-06-27 15:00:00 Outpatient JIN YOUSSEF [facility] [id number] [facility] 2022-06-15 15:30:00 2022-06-15 16:10:30 Outpatient Connor SIERRASHEYLA, [facility] [id number] [facility] 2022-06-08 00:00:00 2022-06-08 00:00:00 Telephone Henry Garcíassica [facility] 1..840.114 350.1.13.10 4.2.7.2.686 [id number] [facility] 2022-05-30 14:30:00 2022-05-30 15:08:52 Outpatient R YUE [facility]A [facility] [id number] [facility] 2022-05-30 14:30:00 2022-05-30 15:08:52 Office Visit Yue García [facility] 1..840.114 350.1.13.10 4.2.7.2.686 [id number] [facility] 2022-05-30 00:00:00 2022-05-30 00:00:00 Orders Only Doctor Unassigned, [place] [facility] .840.114 350.1.13.10 4.2.7.2.686 [id number] [facility] 2022-05-21 10:32:00 2022-05-21 12:47:00 Emergency X [facility] [id number] [facility] 2022-05-21 10:32:00 2022-05-21 12:47:00 Emergency Toya, Ge [facility] 1.2.840.114 350.1.13.10 4.2.7.2.686 [id number] [facility] Results Test Description Test Time Test Comments Results Result Co mments Source [id number] 00:02:10* Test Item Value Reference Range Interpretation Comme nts FREE T4 (test code = 7391240626) 1.13 ng/dL 0.78-2.20 Lab Interpretation (test cod e = 96060-2) Normal [facility] (36421)(Total Cholesterol, Triglycerides, HDL)2024-02-18 23:45:31* Test Item Value Reference Range Interpretation Comme nts CHOL (test code = 8769113524) 145 mg/dL 120-200 HDL (test code = 7955725324) 39 mg/dL >=40 L HDLC RATIO (test code = 4070199869) 3.7 <=5.0 TRIG (test code = 6142045898) 171 mg/dL 30-170 H LDL CHOL (test code = 26722-7) 72 mg/dL <=160 VLDL (test code = 3476168302) 34 mg/dL 5-60 Lab Interpretation (test cod e = 83903-0) Abnormal [facility] Metabolic Panel (56648)2024-02-18 23:45:10* Test Item Value Reference Range Interpretation Comme nts NA (test code = 1122232717) 141 mmol/L 135-145 K (test code = 3500572538) 4.8 mmol/L 3.5-5.0 CL (test code = 9861870389) 104 mmol/L 98-108 CO2 TOTAL (test code = 7795647075) 27 mmol/L 23-31 AGAP (test code = 6002341641) 10 2-16 BUN (test code = 5068592271) 19 mg/dL 7-23 GLUCOSE (test code = 7773988914) 235 mg/dL 70-110 H CREATININE (test code = 2160-0) 5.29 mg/dL 0.60-1.25 H TOTAL BILI (test code = 7988710941) 0.2 mg/dL 0.1-1.1 CALCIUM (test code = 2237721679) 8.3 mg/dL 8.6-10.6 L T PROTEIN (test code = 7766478146) 7.7 g/dL 6.3-8.2 ALBUMIN (test code = 9233069416) 4.2 g/dL 3.5-5.0 ALK PHOS (test code = 8007779084) 80 U/L 34-122 ALTv (test code = 1742-6) 21 U/L 5-50 AST(SGOT) (test code = 7716536881) 18 U/L 13-40 eGFR (test code = 66725-4) 12.3 mL/min/1.73m2 CKD-EPI eGFR (2020). Assuming creatinine has been stable day-to-day for at least three months, the eGFR indicates Category G5 (<= 14mL/min/1.73 m2) Lab Interpretation (test code = 71694-2) Abnormal [facility] GASTRIC [id number] 21:07:07EXAM: NM Gastric Solid Emptying INDICATION: Prolonged severe nausea and vomiting. COMPARISON: None available. TECHNIQUE: After oral administration of 1.0 mCi of Tc 99m sulfur colloid in a solidmeal, sequential static anterior and posterior images were obtained through4 hours; percent retention was calculated using the geometric mean. FINDINGS: Activity is seen in the stomach with gradual progress to the small bowelduring the time of the study. DICOM images show percentage of emptying. Percent retention (calculated): 1 hour: 52 (normal 90-30%)2 hours: 24 (normal less than 60%)3 hours: 6 (normal less than 30%)4 hours: 5 (normal less than 10%)[facility] [id number] 23:25:49* Test Item Value Reference Range Interpretation Comme nts PSA (test code = 2779054457) 14.90 ng/mL <=4.00 H MERLE (test code = MERLE) Biotin has been reported to cause a negative bias, interpret results relative to patient's use of biotin.The [employer] PSA assay was used. ?Results obtained with different test methods or kits may be different and cannot be used interchangeably. Lab Interpretation (test code = 12635-0) Abnormal [facility] Specific [id number] 23:25:49 * Test Item Value Reference Range Interpretation Comme nts PSA (test code = 6109732425) 14.90 ng/mL <=4.00 H MERLE (test code = MERLE) Biotin has been reported to cause a negative bias, interpret results relative to patient's use of biotin.The [employer] PSA assay was used. ?Results obtained with different test methods or kits may be different and cannot be used interchangeably. Lab Interpretation (test code = 73763-9) Abnormal [facility] HEAD WO [id number] 16:34:15EXAM: CT HEAD WO CONTRAST HISTORY: 52 years-old Male; Provided indication: Mental status change,unknown cause TECHNIQUE: Axial CT of the head was performed and reconstructed at 5 mmintervals. Coronaland sagittal reformatted images were generated. COMPARISON: CT head dated 01/26/2022 FINDINGS: The ventricles and cerebral sulci are normal in caliber and configuration.No midline shift or pathological extra-axial fluid collection is present.The basal cisterns are unremarkable. No acute intraparenchymal hemorrhage or significant mass effect isvisualized. Prominent CSF spaces of the left parietal and bilateral frontal(right greater than left) are again visualized. 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 No parenchymal attenuation abnormalityis seen. The martinez-white matter differentiation is preserved. ? A left maxillary sinus retention cyst is partially visualized. The mastoidair cells and remainder of paranasal air sinuses are clear. The calvariumand central skull base are unremarkable.[facility] GLUCOSE (AUTOMATED)2023-03-06 16:25:05* Test Item Value Reference Range Interpretation Comme nts POCT GLU (test code = 7908444862) 208 mg/dL 70-110 H Lab Interpretation (test cod e = 75836-1) Abnormal [facility] GLUCOSE (AUTOMATED)2023-03-06 15:47:22* Test Item Value Reference Range Interpretation Comme nts POCT GLU (test code = 1178557543) 221 mg/dL 70-110 H Lab Interpretation (test cod e = 82990-6) Abnormal [facility] GLUCOSE (AUTOMATED)2023-03-06 15:04:15* Test Item Value Reference Range Interpretation Comme nts POCT GLU (test code = 9857516640) 164 mg/dL 70-110 H Lab Interpretation (test cod e = 31365-8) Abnormal [facility] GLUCOSE (AUTOMATED)2023-03-06 14:25:27* Test Item Value Reference Range Interpretation Comme nts POCT GLU (test code = 7476725344) 125 mg/dL 70-110 H Lab Interpretation (test cod e = 43238-3) Abnormal [facility] GLUCOSE (AUTOMATED)2023-03-06 14:14:06* Test Item Value Reference Range Interpretation Comme nts POCT GLU (test code = 8561498120) 114 mg/dL 70-110 H Lab Interpretation (test cod e = 63983-3) Abnormal [facility] GLUCOSE (AUTOMATED)2023-03-06 13:59:01* Test Item Value Reference Range Interpretation Comme nts POCT GLU (test code = 3208949361) 95 mg/dL 70-110 Lab Interpretation (test cod e = 85959-7) Normal [facility]. Metabolic Panel (14229)2023-03-06 13:55:55* Test Item Value Reference Range Interpretation Comme nts NA (test code = 7917235129) 142 mmol/L 135-145 K (test code = 0126779729) 4.4 mmol/L 3.5-5.0 CL (test code = 7950103621) 106 mmol/L 98-108 CO2 TOTAL (test code = 6516314940) 23 mmol/L 23-31 AGAP (test code = 5402731729) 13 2-16 BUN (test code = 7831089204) 55 mg/dL 7-23 H GLUCOSE (test code = 5022379035) 68 mg/dL 70-110 L CREATININE (test code = 2307175967) 7.69 mg/dL 0.60-1.25 H TOTAL BILI (test code = 8673635687) 0.6 mg/dL 0.1-1.1 CALCIUM (test code = 7056809091) 7.9 mg/dL 8.6-10.6 L T PROTEIN (test code = 8099573565) 8.1 g/dL 6.3-8.2 ALBUMIN (test code = 1681590267) 4.1 g/dL 3.5-5.0 ALK PHOS (test code = 0007702596) 80 U/L 34-122 ALTv (test code = 1742-6) 25 U/L 5-50 AST(SGOT) (test code = 2819980023) 23 U/L 13-40 eGFR (test code = 92634-2) 7.9 mL/min/1.73m2 CKD-EPI eGFR (2020). Assuming creatinine has been stable day-to-day for at least three months, the eGFR indicates Category G5 (<= 14mL/min/1.73 m2) Lab Interpretation (test code = 76455-1) Abnormal [facility]2023-03-06 13:48:30* Test Item Value Reference Range Interpretation Comme [facility] POCT GLU (test code = 3875481871) 95 mg/dL 70-110 Lab Interpretation (test cod e = 31819-1) Normal [facility] with [id number] 13:40:15* Test Item Value Reference Range Interpretation Comme nts WBC (test code = 6690-2) 9.88 See_Comment [Automated messa ge] The system which generated this result transmitted reference range: 4.20 - 10.70 10*3/?L. The reference range was not used to interpret this result as normal/abnormal. RBC (test code = 789-8) 3.48 See_Comment L [Automated messa ge] The system which generated this result transmitted reference range: 4.26 - 5.52 10*6/?L. The reference range was not used to interpret this result as normal/abnormal. HGB (test code = 718-7) 11.2 g/dL 12.2-16.4 L HCT (test code = 4544-3) 33.2 % 38.4-49.3 L MCV (test code = 787-2) 95.4 fL 81.7-95.6 MCH (test code = 785-6) 32.2 pg 26.1-32.7 MCHC (test code = 786-4) 33.7 g/dL 31.2-35.0 RDW-SD (test code = 16344-2) 52.1 fL 38.5-51.6 H RDW-CV (test code = 788-0) 15.3 % 12.1-15.4 PLT (test code = 777-3) 257 See_Comment [Automated messa ge] The system which generated this result transmitted reference range: 150 - 328 10*3/?L. The reference range was not used to interpret this result as normal/abnormal. MPV (test code = 33530-1) 10.2 fL 9.8-13.0 NRBC/100 WBC (test code = 4314888149) 0.0 See_Comment [Automated me ssage] The system which generated this result transmitted reference range: 0.0 - 10.0 /100 WBCs. The reference range was not used to interpret this result as normal/abnormal. NRBC x10^3 (test code = 6816249525) See_Comment [Automated messa ge] The system which generated this result transmitted reference range: 10*3/?L. The reference range was not used to interpret this result as normal/abnormal. GRAN MAT (NEUT) % (test code = 770-8) 77.5 % IMM GRAN % (test code = 1171472681) 0.30 % LYMPH % (test code = 736-9) 12.7 % MONO % (test code = 5905-5) 6.8 % EOS % (test code = 713-8) 2.2 % BASO % (test code = 706-2) 0.5 % GRAN MAT x10^3(ANC) (test code = 7828323811) 7.66 10*3/uL 1.99-6.95 H IMM GRAN x10^3 (test code = 8666011174) 0.03 10*3/uL 0.00-0.06 LYMPH x10^3 (test code = 731-0) 1.25 10*3/uL 1.09-3.23 MONO x10^3 (test code = 742-7) 0.67 10*3/uL 0.36-1.02 EOS x10^3 (test code = 711-2) 0.22 10*3/uL 0.06-0.53 BASO x10^3 (test code = 704-7) 0.05 10*3/uL 0.01-0.09 Lab Interpretation (test code = 69929-3) Abnormal [facility] GLUCOSE (AUTOMATED)2023-03-06 13:39:49* Test Item Value Reference Range Interpretation Comme nts POCT GLU (test code = 1048242020) 60 mg/dL 70-110 L Lab Interpretation (test cod e = 56019-8) [facility]23-[facility]-06 13:08:36* Test Item Value Reference Range Interpretation Comme nts POCT GLU (test code = 9460007697) 100 mg/dL 70-110 Lab Interpretation (test cod e = 03117-7) Normal [facility] GLUCOSE (AUTOMATED)2023-01-27 18:20:56* Test Item Value Reference Range Interpretation Comme nts POCT GLU (test code = 5153418927) 246 mg/dL 70-110 H Lab Interpretation (test cod e = 64241-8) Abnormal [facility] GLUCOSE (AUTOMATED)2023-01-27 13:44:20* Test Item Value Reference Range Interpretation Comme nts POCT GLU (test code = 6098018486) 246 mg/dL 70-110 H Lab Interpretation (test cod e = 22140-1) Abnormal [facility] GLUCOSE (AUTOMATED)2023-01-27 01:55:04* Test Item Value Reference Range Interpretation Comme nts POCT GLU (test code = 8115030538) 266 mg/dL 70-110 H Lab Interpretation (test cod e = 43771-5) Abnormal [facility] GLUCOSE (AUTOMATED)2023-01-26 22:23:05* Test Item Value Reference Range Interpretation Comme nts POCT GLU (test code = 7172268573) 253 mg/dL 70-110 H Lab Interpretation (test cod e = 59197-7) Abnormal [facility] GLUCOSE (AUTOMATED)2023-01-26 17:20:25* Test Item Value Reference Range Interpretation Comme nts POCT GLU (test code = 5343017557) 202 mg/dL 70-110 H Lab Interpretation (test cod e = 52008-8) Abnormal [facility] GLUCOSE (AUTOMATED)2023-01-26 14:01:28* Test Item Value Reference Range Interpretation Comme nts POCT GLU (test code = 5880544687) 127 mg/dL 70-110 H Lab Interpretation (test cod e = 15732-1) Abnormal [facility] GLUCOSE (AUTOMATED)2023-01-26 04:05:46* Test Item Value Reference Range Interpretation Comme nts POCT GLU (test code = 9001426255) 336 mg/dL 70-110 H Lab Interpretation (test cod e = 00164-2) Abnormal [facility] GLUCOSE (AUTOMATED)2023-01-26 01:30:58* Test Item Value Reference Range Interpretation Comme nts POCT GLU (test code = 7249163136) 414 mg/dL 70-110 H Lab Interpretation (test cod e = 13675-3) Abnormal [facility] GLUCOSE (AUTOMATED)2023-01-26 00:21:53* Test Item Value Reference Range Interpretation Comme nts POCT GLU (test code = 2451124930) 503 mg/dL 70-110 HH Lab Interpretation (test cod e = 94659-2) Abnormal [facility] GLUCOSE (AUTOMATED)2023-01-25 23:22:46* Test Item Value Reference Range Interpretation Comme nts POCT GLU (test code = 5736159317) 563 mg/dL 70-110 HH Lab Interpretation (test cod e = 46888-3) Abnormal [facility] GLUCOSE (AUTOMATED)2023-01-25 22:43:40* Test Item Value Reference Range Interpretation Comme nts POCT GLU (test code = 6207008260) 70-110 HH Lab Interpretation (test cod e = 92012-6) Abnormal [facility] GLUCOSE (AUTOMATED)2023-01-25 22:43:40* Test Item Value Reference Range Interpretation Comme nts POCT GLU (test code = 1715455512) 70-110 HH Notified Provide r Lab Interpretation (test code = 25823-1) Abnormal [facility] GLUCOSE(AGE >30DAYS)2023-01-25 22:37:00* Test Item Value Reference Range Interpretation Comme nts POCT Glu (age>30days) (test code = 3342) HI 70-110 Lab Interpretation (test cod e = 13612-3) Normal [facility] GLUCOSE (AUTOMATED)2023-01-25 21:28:56* Test Item Value Reference Range Interpretation Comme nts POCT GLU (test code = 4297092766) 70-110 HH Lab Interpretation (test cod e = 90266-1) Abnormal [facility] GLUCOSE (AUTOMATED)2023-01-25 21:19:05* Test Item Value Reference Range Interpretation Comme nts POCT GLU (test code = 0345934386) 70-110 HH Lab Interpretation (test cod e = 80461-8) Abnormal [facility] GLUCOSE(AGE >30DAYS)2023-01-25 21:10:00* Test Item Value Reference Range Interpretation Comme nts POCT Glu (age>30days) (test code = 3342) HI 70-110 Lab Interpretation (test cod e = 03345-4) Normal [facility] GLUCOSE(AGE >30DAYS)2023-01-25 20:06:00* Test Item Value Reference Range Interpretation Comme nts POCT Glu (age>30days) (test code = 3342) HI 70-110 Lab Interpretation (test cod e = 58579-9) Normal [facility] [id number] 12:46:43* Test Item Value Reference Range Interpretation Comme nts K (test code = 6586841624) 3.7 mmol/L 3.5-5.0 Lab Interpretation (test cod e = 40985-2) Normal [facility] [id number] 12:46:43* Test Item Value Reference Range Interpretation Comme nts K (test code = 4703366903) 3.7 mmol/L 3.5-5.0 Lab Interpretation (test cod e = 82096-7) Normal [facility] GLUCOSE (AUTOMATED)2022-07-14 12:03:20* Test Item Value Reference Range Interpretation Comme nts POCT GLU (test code = 2723713347) 134 mg/dL 70-110 H Lab Interpretation (test cod e = 60437-5) Abnormal [facility] GLUCOSE (AUTOMATED)2022-07-14 12:03:20* Test Item Value Reference Range Interpretation Comme nts POCT GLU (test code = 0968351072) 134 mg/dL 70-110 H Lab Interpretation (test cod e = 66979-1) Abnormal [facility] GLUCOSE (AUTOMATED)2022-05-21 16:51:42* Test Item Value Reference Range Interpretation Comme nts POCT GLU (test code = 1062511018) 149 mg/dL 70-110 H Lab Interpretation (test cod e = 81778-9) Abnormal [facility] GLUCOSE (AUTOMATED)2022-05-21 16:15:43* Test Item Value Reference Range Interpretation Comme [facility] POCT GLU (test code = 4521812564) 69 mg/dL 70-110 L Lab Interpretation (test cod e = 06299-8) Abnormal [facility] GLUCOSE (AUTOMATED)2022-05-21 15:44:00* Test Item Value Reference Range Interpretation Comme [facility] POCT GLU (test code = 6773967517) 54 mg/dL 70-110 L Lab Interpretation (test cod e = 16315-7) Abnormal [facility]
[2024-03-01] MEDS ORDERED: NA CHLORIDE 0.9% 0 ML ONE (12:20)
[2024-03-01 12:31] LABS: Absolute Eosinophils 0.5 K/uL (0-0.5); Absolute Lymphocytes (CBC) 1.2 K/uL (0.7-4.9); Absolute Monocytes 0.7 K/uL (0.1-1.3); Basophils % 0.6 % (0-1.3); Eosinophils % 6.1 % (0-4.4); Hemoglobin 12.1 g/dL (13.6-17.9); Lymphocytes % 14.7 % (15.3-44.8); MCH 32.4 pg (27.0-35.0); MCHC 33.6 g/dL (32.0-36.0); MCV 96.5 fL (80-100); MPV 8.2 fL (7.6-11.3); Monocytes % 8.5 % (3.3-12.3); Neutrophils % 70.1 % (41.7-73.7); Nucleated Red Blood Cells % 0.1 % (0-0); Platelets 136 thou/uL (152-406); RBC Red Blood Cell Count 3.73 M/uL (4.33-5.43); Red Cell Distribution Width 15.6 % (12.1-15.2)
[2024-03-01 12:50] LABS: Anion Gap 8.8 mEq/L (5.0-15.0); Potassium 4.8 mEq/L (3.5-5.1); Troponin High Sensitivity 24.7 pg/mL (<58.9)
--- NOTE | 2024-03-01 13:02 | ER ---
Nurse's Notes [facility] Name: Gabe Maynard Age: 53 yrs Sex: Male : 1970 Arrival Date: 03/01/2024 Time: 11:43 Bed 15 Private MD: Diagnosis: Lightheadedness Presentation: 03/01 11:53 Chief complaint: EMS states: [facility] toned out EMS for low blood rs5 pressure in 70's systolic. Coronavirus screen: At this time, the client does not indicate any symptoms associated with coronavirus-19. Ebola Screen: No symptoms or risks identified at this time. Initial Sepsis Screen: Does the patient meet any 2 criteria? No. Patient's initial sepsis screen is negative. Does the patient have a suspected source of infection? No. Patient's initial sepsis screen is negative. Risk Assessment: Do you want to hurt yourself or someone else? Patient reports no desire to harm self or others. Onset of symptoms was March 01, 2024. 11:53 Method Of Arrival: EMS: [facility] rs5 11:53 Acuity: HERMELINDO 3 rs5 Triage Assessment: 11:55 General: Appears in no apparent distress. comfortable, Behavior is calm, cooperative. rs5 Historical: - Allergies: 11:56 No Known Allergies; rs5 - PMHx: 12:08 Diabetes mellitus; LAURA; CKD; Hypertensive disorder; rs5 - PSHx: 12:08 toe amputation; thrombectomy; AV fistula Left upper arm; rs5 - Immunization history:: Adult Immunizations up to date. - Infectious Disease History:: Denies. - Social history:: Smoking status: Patient denies any tobacco usage or history of. Screenin:52 [facility] ED Fall Risk Assessment (Adult) History of falling in the last 3 months, rs5 including since admission Yes- fall prone (multiple falls) (3 pts) Confusion or Disorientation No (0 pts) Intoxicated or Sedated No (0 pts) Impaired Gait Yes (1 pt) Mobility Assist Device Used Yes (1 pt) Altered Elimination No (0 pt) Score/Fall Risk Level 3 or more points = High Risk Oriented to surroundings, Maintained a safe environment. Abuse screen: Denies threats or abuse. Nutritional screening: No deficits noted. Tuberculosis screening: No symptoms or risk factors identified. Assessment: 11:52 General: Appears in no apparent distress. comfortable, Behavior is calm, cooperative. rs5 Pain: Denies pain. Neuro: Level of Consciousness is awake, alert, obeys commands, Oriented to person, place, time, situation. Cardiovascular: Patient's skin is warm and dry. Respiratory: Airway is patent Respiratory effort is even, unlabored, Respiratory pattern is regular, symmetrical. GI: Abdomen is round non-distended, Abd is soft and non tender X 4 quads. : No signs and/or symptoms were reported regarding the genitourinary system. EENT: No signs and/or symptoms were reported regarding the EENT system. Derm: Skin is intact, Skin is pink, warm \T\ dry. Musculoskeletal: Range of motion: intact in all extremities. 12:58 Reassessment: Patient and/or family updated on plan of care and expected duration. Pain rs5 level reassessed. Patient is alert, oriented x 3, equal unlabored respirations, skin warm/dry/pink. Vital Signs: 11:53 BP 117 / 77; Pulse 70; Resp 17; Pulse Ox 99% on R/A; rs5 12:28 BP 112 / 73; ec2 12:50 BP 110 / 68; Pulse 74; Resp 17; Pulse Ox 98% on R/A; rs5 ED Course: 11:50 Patient arrived in ED. rs5 11:52 Liban Saenz MD is Attending Physician. ec2 11:52 Patient has correct armband on for positive identification. Bed in low position. Call rs5 light in reach. Side rails up X2. 11:52 No provider procedures requiring assistance completed. rs5 11:55 Arm band placed on right wrist. rs5 11:55 Inserted saline lock: 22 gauge in right forearm, using aseptic technique. Blood rs5 collected. Flushed with 10 mL NS. 11:56 Triage completed. rs5 12:07 Jsoe Turner, RN is Primary Nurse. rs5 12:50 Provided Education on: discharge instructions . rs5 12:58 XRAY Chest (1 view) In Process Unspecified. EDMS 13:15 IV discontinued, intact, bleeding controlled, No redness/swelling at site. Pressure rs5 dressing applied. Administered Medications: 12:28 Not Given (Physician Discretion): ns 0.9% 1000 ml IV at 1 bolus Per protocol; to be ec2 given as a bolus over 60 minutes Medication: 12:40 VIS not applicable for this client. rs5 Outcome: 13:01 Discharge ordered by . ec2 13:15 Discharged to home ambulatory, rs5 13:15 Condition: stable rs5 13:15 Discharge instructions given to patient, family, Instructed on discharge instructions, follow up and referral plans. Demonstrated understanding of instructions, follow-up care, 13:16 Patient left the ED. rs5 Signatures: Dispatcher [employer] Jose Gray RN RN rs5 Liban Saenz MD MD ec2
--- NOTE | 2024-03-01 13:02 | EDPHYS ---
Physician Documentation [facility] Name: Gabe Maynard Age: 53 yrs Sex: Male : 1970 Arrival Date: 03/01/2024 Time: 11:43 Bed 15 Private MD: ED Physician Liban Saenz HPI: 03/01 12:29 This 53 yrs old Male presents to ER via EMS with complaints of Dizziness. ec2 12:29 Patient arrives today for evaluation of lightheadedness. He was receiving his dialysis ec2 treatment, had approximately 1.5 hours then and subsequently felt lightheaded and sees dialysis. Reports no chest pain or difficulty breathing. Reports he had low blood pressures however have since resolved. EMS reports appropriate blood pressures and patient reports no further symptoms. Denies chest pain or difficulty breathing. Reports no active lightheadedness.. Historical: - Allergies: 11:56 No Known Allergies; rs5 - PMHx: 12:08 Diabetes mellitus; LAURA; CKD; Hypertensive disorder; rs5 - PSHx: 12:08 toe amputation; thrombectomy; AV fistula Left upper arm; rs5 - Immunization history:: Adult Immunizations up to date. - Infectious Disease History:: Denies. - Social history:: Smoking status: Patient denies any tobacco usage or history of. ROS: 12:29 Constitutional: as per hpi ec2 Exam: 12:28 Constitutional: GEN: NAD Head: atraumatic Eyes: EOMI Ears: External ears are ec2 normal. CV: regular rate LUNGS: no respiratory distress ABD: non-distended SKIN: no evidence of rashes MSK: no evidence of trauma Vital Signs: 11:53 BP 117 / 77; Pulse 70; Resp 17; Pulse Ox 99% on R/A; rs5 12:28 BP 112 / 73; ec2 12:50 BP 110 / 68; Pulse 74; Resp 17; Pulse Ox 98% on R/A; rs5 MDM: 11:52 Medical Screening Exam initiated ec2 12:30 Data reviewed: vital signs, nurses notes. ED course: Patient arrives today for ec2 evaluation of lightheadedness after dialysis. Examination yields well-appearing nontoxic hemodynamically stable individual otherwise in no acute distress. Will obtain lab work. Suspect dialysis complication causing the patient's lightheadedness. Additionally considered electrolyte disturbances, arrhthymia, anemia.. 12:49 ED course: EKG independently reviewed and interpreted by me, shows no acute ST segment ec2 elevations, intervals are nonactionable, nonspecific T wave abnormalities noted in the inferior leads.. 13:00 ED course: Labs nonactionable.. ec2 13:00 ED course: I reassessed patient with no recurrence of symptoms. Chest x-ray ec2 independently reviewed and interpreted by me, shows no acute intrathoracic process.. 03/01 11:52 Order name: Basic Metabolic Panel; Complete Time: 12:56 ec2 03/01 11:52 Order name: CBC with Diff; Complete Time: 12:56 ec2 03/01 11:52 Order name: Troponin HS; Complete Time: 12:56 ec2 03/01 11:52 Order name: XRAY Chest (1 view); Complete Time: 13:10 ec2 03/01 11:52 Order name: EKG; Complete Time: 11:52 ec2 03/01 11:52 Order name: Cardiac monitoring; Complete Time: 12:51 ec2 03/01 11:52 Order name: EKG - Nurse/Tech; Complete Time: 12:51 ec2 03/01 11:52 Order name: IV Saline Lock; Complete Time: 12:51 ec2 03/01 11:52 Order name: Labs collected and sent; Complete Time: 12:51 ec2 03/01 11:52 Order name: O2 Per Protocol; Complete Time: 12:51 ec2 03/01 11:52 Order name: O2 Sat Monitoring; Complete Time: 12:51 ec2 Administered Medications: 12:28 Not Given (Physician Discretion): ns 0.9% 1000 ml IV at 1 bolus Per protocol; to be ec2 given as a bolus over 60 minutes Disposition Summary: 03/01/24 13:01 Discharge Ordered Notes: Location: Home ec2 Condition: Stable ec2 Diagnosis - Lightheadedness ec2 Followup: ec2 - With: Private Physician - When: - Reason: Re-evaluation by your physician Discharge Instructions: - Discharge Summary Sheet ec2 - Dizziness, [id number] ec2 Forms: - Medication Reconciliation Form ec2 - Antibiotic Education ec2 - Prescription Opioid Use ec2 - Patient Portal Instructions ec2 - Leadership Thank You Letter ec2 Signatures: Dispatcher [facility] Jose Gray RN RN rs5 Saenz, Liban, MD MD ec2
--- NOTE | 2024-03-01 13:06 | RAD REPORT ---
EXAMINATION: ONE VIEW CHEST XR CLINICAL INDICATION: COUGH TECHNIQUE: Frontal chest projection is submitted. Examination is limited by patient positioning and t echnique. COMPARISON: No prior exam. FINDINGS: The lungs are well inflated and clear. The heart is upper limit of normal in size. No displaced fract ures identified. IMPRESSION: No acute intrathoracic abnormalities.
[2024-03-01 13:28] VITALS: O2SAT 99
[2024-03-01 13:29] VITALS: BP 112/73
--- NOTE | 2024-03-10 11:17 | EKG ---
Test Date: 2024-03-01 Test Time: 12:47:45 Staple Fiber Washer: RACHAEL MEASUREMENT RESULTS: Intervals: Rate: 82 WA: 162 QRSD: 86 QT: 380 QTc: 443 [place]: P: 35 [place]: 162 QRS: 89 T: -4 INTERPRETIVE STATEMENTS: Normal sinus rhythm ST & T wave abnormality, consider inferior ischemia Abnormal ECG Compared to ECG 03/01/2024 12:42:31 No significant changes Electronically Signed On 03-10-24 11:04:23 HEAD MVA REACTOR OPERATOR by Raji Calderon
--- NOTE | 2024-03-10 11:17 | EKG ---
Test Date: 2024-03-01 Test Time: 12:42:31 Fuel Oil Clerk: RACHAEL MEASUREMENT RESULTS: Intervals: Rate: 83 MN: 162 QRSD: 76 QT: 378 QTc: 444 [place]: P: 33 MN: 162 QRS: 89 T: -7 INTERPRETIVE STATEMENTS: Poor data quality, interpretation may be adversely affected Normal sinus rhythm ST & T wave abnormality, consider inferior ischemia Abnormal ECG Compared to ECG 03/01/2024 12:40:18 No significant changes Electronically Signed On 03-10-24 11:04:26 CONSTRUCTION CONTROLLER by Raji Calderon
--- NOTE | 2024-03-10 11:18 | EKG ---
Test Date: 2024-03-01 Test Time: 12:40:18 Sales Project Engineer: RACHAEL MEASUREMENT RESULTS: Intervals: Rate: 84 [place]: 168 QRSD: 84 QT: 376 QTc: 444 [place]: P: 36 MI: 168 QRS: 89 T: -5 INTERPRETIVE STATEMENTS: Poor data quality, interpretation may be adversely affected Normal sinus rhythm ST & T wave abnormality, consider inferior ischemia Abnormal ECG No previous ECG available for comparison Electronically Signed On 03-10-24 11:04:28 GROUP EXERCISE INSTRUCTOR by Raji Caledron
== END 2024-03-01 13:16 | disposition home or self-care (01) ==
LOC: ER 11:43
DX: R42 Dizziness and giddiness (principal); E11.22 Type 2 diabetes mellitus with diabetic chronic kidney disease; I12.0 Hypertensive chronic kidney disease with stage 5 chronic kidney disease or end stage renal disease; N18.6 End stage renal disease; Z99.2 Dependence on renal dialysis
CPT/HCPCS: 36415; 71045; 80048; 84484; 85025; 93005; 99284; J7030